=== PATIENT | male | born 1960 | race Caucasian/White ===

== ENCOUNTER 2018-10-08 22:28 | Emergency (ER) | payer MEDICARE, MEDICAID ==
[~2018-10-08] VITALS: Ht 172.7 cm; Wt 100.0 kg
[~2018-10-08 22:28] MED LIST: [UNRECOGNIZED DRUG - REMARK] PO
[2018-10-08 22:30] VITALS: BP 141/90
[2018-10-08] MEDS ORDERED: ketorolac tromethamine 15mg/ml inj. IM ONE (23:20)
[2018-10-08] MEDS ORDERED: CYCL-1 PO (23:21)
== END 2018-10-08 23:38 | disposition home or self-care (01) ==
LOC: ER 22:29
DX: S39.012A Strain of muscle, fascia and tendon of lower back, initial encounter (principal); M54.42 Lumbago with sciatica, left side; Z86.718 Personal history of other venous thrombosis and embolism; Z90.49 Acquired absence of other specified parts of digestive tract; Z98.890 Other specified postprocedural states; Z79.899 Other long term (current) drug therapy; X50.0XXA Overexertion from strenuous movement or load, initial encounter; Y93.89 Activity, other specified; Y92.89 Other specified places as the place of occurrence of the external cause; Y99.8 Other external cause status
CPT/HCPCS: 96372; 99283; J1885

== ENCOUNTER 2020-01-27 23:55 | Emergency (ER) | payer MEDICARE, MEDICAID ==
[~2020-01-27] VITALS: Ht 175.3 cm; Wt 95.0 kg
[~2020-01-27 23:55] MED LIST changes: +CYCL-1 PO
[2020-01-28] MEDS ORDERED: ondansetron/PF 4mg/2ml inj IV ONE (00:05)
[2020-01-28] MEDS ORDERED: ketorolac trometh. 30mg/ml inj. IV ONE (00:05)
[2020-01-28] MEDS ORDERED: normal saline 1000ML IV soln IVB ONE (00:05)
[2020-01-28] MEDS ORDERED: HYDROmorphone inj. 0.5 MG/0.5 ML DISP.SYRIN IV PRN (00:05)
[2020-01-28 00:26] LABS: CLARITY,URINE CLEAR (Clear); COLOR,URINE YELLOW (Yellow); GLUCOSE, URINE >=1000 mg/dl (Neg); KETONES,URINE NEGATIVE (Neg); LEUKOCYTE ESTERASE ,URINE NEGATIVE (Neg); NITRITES, URINE NEGATIVE (Neg); OCCULT BLOOD,URINE SMALL (Neg); PROTEIN,URINE NEGATIVE (Neg); UROBILINOGEN,URINE 0.2 E.U/dL (0.2-1.0)
[2020-01-28 00:28] LABS: UA COLLECTION TYPE CLN CATCH MIDSTREAM
[2020-01-28 00:36] LABS: BASOPHILS # (AUTO) 0.1 X10'3 (0-0.2); BASOPHILS % (AUTO) 0.8 % (0-1); EOSINOPHILS # (AUTO) 0.1 X10'3 (0-0.9); EOSINOPHILS % (AUTO) 0.7 % (0-6); HEMATOCRIT 48.2 % (42.0-52.0); HEMOGLOBIN 16.7 g/dl (14.0-17.9); LYMPHOCYTES # (AUTO) 2.2 X10'3 (1.1-4.8); LYMPHOCYTES % (AUTO) 21.5 % (21-51); MEAN CORPUSCULAR HEMOGLOBIN 32.8 PG (27.0-31.0); MEAN CORPUSCULAR HGB CONC 34.6 g/dL (33.0-36.5); MEAN CORPUSCULAR VOLUME 94.7 FL (78-98); MEAN PLATELET VOLUME 7.6 FL (7.4-10.4); MONOCYTES # (AUTO) 0.9 X10'3 (0-0.9); MONOCYTES % (AUTO) 8.6 % (2-12); NEUTROPHILS % (AUTO) 68.4 % (42-75); PLATELET COUNT 235 X10'3 (140-440); RED BLOOD COUNT 5.08 X10'6 (4.70-6.10); RED CELL DISTRIBUTION WIDTH 13.2 % (11.5-14.5); WHITE BLOOD COUNT 10.2 X10'3 (4.5-11.0)
[2020-01-28 00:38] LABS: BACTERIA,URINE NONE SEEN /HPF (Neg); MUCUS STRANDS NONE SEEN /LPF (Neg); RBC,URINE 0-2 /HPF (0-2); SQUAMOUS EPITHELIAL CELL,UR FEW /LPF (FEW); WBC,URINE NONE SEEN /HPF (0-4)
[2020-01-28] MEDS ORDERED: magnesium citrate 296ml oral solution PO ONE (00:45)
[2020-01-28 00:47] LABS: ALANINE AMINOTRANSFERASE 24 U/L (12-78); ALBUMIN 3.8 G/DL (3.4-5.0); ALKALINE PHOSPHATASE 142 IU/L (46-116); ANION GAP 10 (8-16); ASPARTATE AMINO TRANSFERASE 15 U/L (10-37); BILIRUBIN,TOTAL 0.5 MG/DL (0.1-1.0); BLOOD UREA NITROGEN 15 MG/DL (7-18); BUN/CREATININE RATIO 16.1 (5.4-32.0); CHLORIDE 98 MMOL/L (99-107); CREATININE 0.93 MG/DL (0.60-1.10); GLUCOSE 351 MG/DL (70-104); LIPASE 148 U/L (73-393); POTASSIUM 4.2 MMOL/L (3.5-5.1); SODIUM 133 MMOL/L (135-145); TOTAL CARBON DIOXIDE 25.5 MMOL/L (24-32); TOTAL PROTEIN 7.7 G/DL (6.4-8.2); eGFR 83 ML/MIN
[2020-01-28] MEDS ORDERED: dexamethasone sod phosphate 10mg/ml inj IV STA (00:47)
[2020-01-28] MEDS ORDERED: METH-360 PO (00:48)
[2020-01-28] MEDS ORDERED: PRED20TA PO (00:48)
[2020-01-28] MEDS ORDERED: diazepam 5mg tablet PO ONE (00:50)
[2020-01-28 01:03] VITALS: BP 135/87
== END 2020-01-28 01:06 | disposition home or self-care (01) ==
LOC: ER 23:55
DX: M54.42 Lumbago with sciatica, left side (principal); K59.00 Constipation, unspecified; R73.9 Hyperglycemia, unspecified; G89.29 Other chronic pain; Z86.718 Personal history of other venous thrombosis and embolism; Z90.49 Acquired absence of other specified parts of digestive tract; Z98.890 Other specified postprocedural states; Z79.899 Other long term (current) drug therapy
CPT/HCPCS: 36415; 74176; 80053; 81001; 82948; 83690; 85025; 96374; 96375; 99284; J1100; J1170; J1885; J2405; J7030

== ENCOUNTER 2020-05-19 09:12 | Emergency (ER) | payer MEDICARE, MEDICAID ==
[~2020-05-19] VITALS: Ht 175.3 cm; Wt 80.0 kg
[~2020-05-19 09:12] MED LIST changes: +METH-360 PO
[2020-05-19 09:15] VITALS: BP 132/83
[2020-05-19] MEDS ORDERED: GABA-530 PO ×2 (10:12→10:17)
== END 2020-05-19 10:27 | disposition home or self-care (01) ==
LOC: ER 09:13
DX: M76.32 Iliotibial band syndrome, left leg (principal); G89.29 Other chronic pain; Z86.718 Personal history of other venous thrombosis and embolism; Z98.890 Other specified postprocedural states; Z90.49 Acquired absence of other specified parts of digestive tract; W17.89XA Other fall from one level to another, initial encounter; Y93.89 Activity, other specified; Y92.89 Other specified places as the place of occurrence of the external cause; Y99.9 Unspecified external cause status
CPT/HCPCS: 73502; 99283

== ENCOUNTER 2020-11-13 10:44 | Emergency (ER) | payer MEDICARE, MEDICAID ==
[~2020-11-13] VITALS: Ht 172.7 cm; Wt 79.0 kg
[~2020-11-13 10:44] MED LIST changes: +GABA-530 PO
[2020-11-13 10:46] VITALS: BP 143/83
--- NOTE | 2020-11-13 14:06 | NUR ---
Attempted to call patient back for the third time. Patient not in lobby. Called patient at listed number and left a voicemail. Dr. Mac aware.
== END 2020-11-13 14:07 | disposition left against medical advice (07) ==
LOC: ER 10:44
DX: M25.531 Pain in right wrist (principal); Z53.21 Procedure and treatment not carried out due to patient leaving prior to being seen by health care provider
CPT/HCPCS: 73110

== ENCOUNTER 2022-07-11 13:38 | Emergency (ER) | payer MEDICARE, MEDICAID ==
[~2022-07-11] VITALS: Ht 172.7 cm; Wt 37.2 kg
[2022-07-11] MEDS ORDERED: morphine 4 MG/ML inj SYRINge IV ONE (13:55)
[2022-07-11 14:13] LABS: BASOPHILS # (AUTO) 0.1 X10'3 (0-0.2); BASOPHILS % (AUTO) 0.6 % (0-1); EOSINOPHILS # (AUTO) 0.1 X10'3 (0-0.9); EOSINOPHILS % (AUTO) 0.6 % (0-6); HEMATOCRIT 44.8 % (42.0-52.0); HEMOGLOBIN 15.3 g/dl (14.0-17.9); LYMPHOCYTES # (AUTO) 2.2 X10'3 (1.1-4.8); LYMPHOCYTES % (AUTO) 20.2 % (21-51); MEAN CORPUSCULAR HEMOGLOBIN 32.9 PG (27.0-31.0); MEAN CORPUSCULAR HGB CONC 34.2 g/dL (33.0-36.5); MEAN CORPUSCULAR VOLUME 96.4 FL (78-98); MEAN PLATELET VOLUME 7.3 FL (7.4-10.4); MONOCYTES # (AUTO) 0.7 X10'3 (0-0.9); MONOCYTES % (AUTO) 6.8 % (2-12); NEUTROPHILS # (AUTO) 7.8 X10'3 (1.8-7.7); NEUTROPHILS % (AUTO) 71.8 % (42-75); PLATELET COUNT 243 X10'3 (140-440); RED BLOOD COUNT 4.65 X10'6 (4.70-6.10); RED CELL DISTRIBUTION WIDTH 13.6 % (11.5-14.5); WHITE BLOOD COUNT 10.9 X10'3 (4.5-11.0)
[2022-07-11 14:24] LABS: APTT 26 SECONDS (22-32)
[2022-07-11 14:29] LABS: ALANINE AMINOTRANSFERASE 35 U/L (12-78); ALBUMIN/GLOBULIN RATIO 1.1 (1.1-1.5); ALKALINE PHOSPHATASE 119 IU/L (46-116); ANION GAP 12 (8-16); ASPARTATE AMINO TRANSFERASE 20 U/L (10-37); BILIRUBIN,TOTAL 0.5 MG/DL (0.1-1.0); BLOOD UREA NITROGEN 14 MG/DL (7-18); BUN/CREATININE RATIO 15.1 (5.4-32.0); CALCIUM 9.3 MG/DL (8.5-10.1); CHLORIDE 102 MMOL/L (99-107); CREATININE 0.93 MG/DL (0.60-1.10); GLUCOSE 321 MG/DL (70-104); POTASSIUM 4.1 MMOL/L (3.5-5.1); SODIUM 138 MMOL/L (135-145); TOTAL PROTEIN 7.5 G/DL (6.4-8.2); eGFR 82 ML/MIN
[2022-07-11 14:36] LABS: ETHANOL < 0.010 GM/DL (0.0-0.010)
[2022-07-11] MEDS ORDERED: HYDROcodone/acetaminophen 10/325mg tab PO ONE (15:00)
[2022-07-11] MEDS ORDERED: morphine 10mg/ml inj. IV ONE (15:00)
[2022-07-11 15:31] LABS: CLARITY,URINE CLEAR (Clear); COLOR,URINE YELLOW (Yellow); GLUCOSE, URINE >=1000 mg/dl (Neg); KETONES,URINE NEGATIVE (Neg); LEUKOCYTE ESTERASE ,URINE NEGATIVE (Neg); NITRITES, URINE NEGATIVE (Neg); OCCULT BLOOD,URINE NEGATIVE (Neg); PROTEIN,URINE NEGATIVE (Neg); UROBILINOGEN,URINE 0.2 E.U/dL (0.2-1.0)
[2022-07-11 15:36] LABS: UA COLLECTION TYPE CLN CATCH MIDSTREAM
--- NOTE | 2022-07-11 15:36 | NUR ---
Teri mancuso in [facility] - 07/11/22 at 1658 by GLORIA yasmin Metzger,
[2022-07-11 15:38] LABS: BACTERIA,URINE NONE SEEN /HPF (Neg); RBC,URINE 0-2 /HPF (0-2); SQUAMOUS EPITHELIAL CELL,UR NONE SEEN /LPF (FEW); WBC,URINE 0-4 /HPF (0-4)
--- NOTE | 2022-07-11 15:38 | NUR ---
pt educated on incentive spirometer. return demonstration completed.
[2022-07-11 15:40] LABS: FINE GRANULAR CAST 0-3 /LPF (NEGATIVE); MUCUS STRANDS MANY /LPF (Neg)
[2022-07-11] MEDS ORDERED: HYDR-3972 PO (15:50)
[2022-07-11 15:52] LABS: URINE AMPHETAMINE SCREEN NEGATIVE (Neg); URINE BARBITUATE SCREEN NEGATIVE (Neg); URINE BENZODIAZEPINES SCREEN NEGATIVE (Neg); URINE CANNABINOID SCREEN NEGATIVE (Neg); URINE COCAINE SCREEN NEGATIVE (Neg); URINE METHADONE SCREEN NEGATIVE (Neg); URINE OPIATE SCREEN POSITIVE (Neg); URINE PHENCYCLIDINE SCREEN NEGATIVE (Neg)
[2022-07-11 16:30] VITALS: BP 132/80
== END 2022-07-11 16:40 | disposition home or self-care (01) ==
LOC: ER 13:38
DX: S20.211A Contusion of right front wall of thorax, initial encounter (principal); S40.211A Abrasion of right shoulder, initial encounter; R07.81 Pleurodynia; R91.1 Solitary pulmonary nodule; G89.29 Other chronic pain; Z86.718 Personal history of other venous thrombosis and embolism; Z90.49 Acquired absence of other specified parts of digestive tract; Z98.890 Other specified postprocedural states; Z79.899 Other long term (current) drug therapy; V29.208A Unspecified rider of other motorcycle injured in collision with unspecified motor vehicles in nontraffic accident, initial encounter; Y93.89 Activity, other specified; Y92.89 Other specified places as the place of occurrence of the external cause; Y99.8 Other external cause status
CPT/HCPCS: 36415; 71250; 80053; 80305; 80320; 81001; 84484; 85025; 85610; 85730; 93005; 96374; 96375; 99285; J2270; J2274

== ENCOUNTER 2023-08-22 02:07 | Emergency (ER) | payer MEDICARE, MEDICAID ==
[~2023-08-22] VITALS: Ht 175.3 cm; Wt 70.3 kg
[2023-08-22 02:10] VITALS: TEMP 97.2
[2023-08-22] MEDS ORDERED: LIDOCAINE 1%/EPI 1:100,000 inj. 10 ML multi-dose vial IJ ONE (04:30)
[2023-08-22] MEDS ORDERED: TETanus/Pertussis (Acell)/Diphther VAC/PF (Tdap-Adult) 0.5ml syringe IMVAC ONE (04:30)
[2023-08-22 05:21] VITALS: BP 111/76; PULSE 78; RESP 18; O2SAT 97
== END 2023-08-22 05:57 | disposition left against medical advice (07) ==
LOC: ER 02:07
DX: S01.01XA Laceration without foreign body of scalp, initial encounter (principal); W18.39XA Other fall on same level, initial encounter; Y93.89 Activity, other specified; Y92.89 Other specified places as the place of occurrence of the external cause; Y99.8 Other external cause status
CPT/HCPCS: 12002; 70450; 71045; 90471; 90715; 99285

== ENCOUNTER 2024-10-12 12:35 | Emergency (ER) | payer MEDICARE, MEDICAID ==
[~2024-10-12] VITALS: Ht 175.3 cm; Wt 66.0 kg
[2024-10-12 12:47] VITALS: BP 101/67; PULSE 85; TEMP 97.5; O2SAT 99
[2024-10-12] MEDS: TETanus/Pertussis (Acell)/Diphther VAC/PF (Tdap-Adult) 0.5ml syringe IMVAC ONE (14:13)
[2024-10-12] MEDS: LIDOcaine 1% W/epiNEPHrine 1:100,000 20ml vial IJ ONE (14:14)
[2024-10-12] MEDS ORDERED: SULF1TAB49 PO (14:18)
[2024-10-12 14:42] VITALS: RESP 16
[2024-10-12] MEDS: HYDROcodone/acetaminophen 5mg/325mg tablet PO ONE (14:42)
== END 2024-10-12 14:45 | disposition home or self-care (01) ==
LOC: ER 12:36
DX: L02.31 Cutaneous abscess of buttock (principal); E11.9 Type 2 diabetes mellitus without complications; G89.29 Other chronic pain; M54.9 Dorsalgia, unspecified; Z86.718 Personal history of other venous thrombosis and embolism; Z90.49 Acquired absence of other specified parts of digestive tract; Z79.899 Other long term (current) drug therapy
CPT/HCPCS: 10060; 99283; A6253; A6258; A6402; J3490; Z7610; A6449

== ENCOUNTER 2025-02-24 21:24 | Emergency (ER) | payer MEDICARE, MEDICAID ==
[~2025-02-24] VITALS: Ht 172.7 cm; Wt 90.0 kg
[2025-02-24 21:36] VITALS: BP 110/65; PULSE 106; RESP 16; TEMP 98.2; O2SAT 95
--- NOTE | 2025-02-24 21:47 | ELECTROCARDIOGRAPH REPORT ---
[facility] Test Date: 2025-02-24 Test Time: 21:44:18 Pat Name: HELEN ROMERO Department: [facility]-ER Patient ID: [facility]-[id number] Room: Gender: M Information Technology Auditor: TEREZA : 1960 Requested By: DEVORAH GAITAN Order Number: [id number] Reading MD: Measurements Intervals [place] Rate: 111 P: 78 NE: 167 QRS: 86 QRSD: 98 T: -25 QT: 350 QTc: 476 Interpretive Statements Sinus tachycardia Biatrial enlargement Borderline right axis deviation Anteroseptal infarct, old Please click the below link to view image of tracing.
[2025-02-24 22:02] LABS: BASOPHILS # (AUTO) 0.1 X10'3 (0-0.2); BASOPHILS % (AUTO) 0.9 % (0-1); EOSINOPHILS # (AUTO) 0.1 X10'3 (0-0.9); EOSINOPHILS % (AUTO) 0.9 % (0-6); HEMATOCRIT 44.2 % (42.0-52.0); HEMOGLOBIN 15.1 g/dl (14.0-17.9); LYMPHOCYTES # (AUTO) 2.1 X10'3 (1.1-4.8); LYMPHOCYTES % (AUTO) 24.6 % (21-51); MEAN CORPUSCULAR HEMOGLOBIN 31.5 PG (27.0-31.0); MEAN CORPUSCULAR HGB CONC 34.1 g/dL (33.0-36.5); MEAN CORPUSCULAR VOLUME 92.2 FL (78-98); MEAN PLATELET VOLUME 7.7 FL (7.4-10.4); MONOCYTES # (AUTO) 0.7 X10'3 (0-0.9); MONOCYTES % (AUTO) 7.8 % (2-12); NEUTROPHILS # (AUTO) 5.7 X10'3 (1.8-7.7); NEUTROPHILS % (AUTO) 65.8 % (42-75); PLATELET COUNT 284 X10'3 (140-440); RED CELL DISTRIBUTION WIDTH 13.4 % (11.5-14.5); WHITE BLOOD COUNT 8.7 X10'3 (4.5-11.0)
[2025-02-24 22:14] LABS: ALANINE AMINOTRANSFERASE 19 U/L (12-78); ALBUMIN 4.1 G/DL (3.4-5.0); ALBUMIN/GLOBULIN RATIO 1.1 (1.1-1.5); ALKALINE PHOSPHATASE 159 IU/L (46-116); ANION GAP 10 (8-16); ASPARTATE AMINO TRANSFERASE 15 U/L (10-37); BILIRUBIN,TOTAL 1.1 MG/DL (0.1-1.0); BLOOD UREA NITROGEN 16 MG/DL (7-18); BUN/CREATININE RATIO 14.8 (10.0-20.0); CALCIUM 9.4 MG/DL (8.5-10.1); CHLORIDE 102 MMOL/L (99-107); CREATININE 1.08 MG/DL (0.60-1.10); GLUCOSE 332 MG/DL (70-104); POTASSIUM 3.9 MMOL/L (3.5-5.1); SODIUM 138 MMOL/L (135-145); TOTAL CARBON DIOXIDE 26.3 MMOL/L (24-32); TOTAL PROTEIN 7.7 G/DL (6.4-8.2); eCRCL 65 ML/MIN; eGFR 68 ML/MIN
--- NOTE | 2025-02-24 22:18 | RADIOLOGY REPORT ---
CHEST RADIOGRAPH Indication: CP Technique: Single frontal view of the chest was obtained COMPARISON: Chest AP 08/22/2023 FINDINGS: Lines and Tubes: None Lungs: Lungs appear hyperinflated with relative lucency in the upper lobes suggestive of emphysematou s changes. No pulmonary infiltrates or edema. Pleura: No effusion. No pneumothorax. Cardiomediastinal contours: Unremarkable IMPRESSION: No acute abnormality noted. Pulmonary hyperinflation suggestive of emphysematous changes. No significant change compared to the prior chest x-ray from August 2023.
[2025-02-24 22:21] LABS: PRO BRAIN NATRIURETIC PEPTIDE 49 PG/ML (0-125)
== END 2025-02-24 23:31 | disposition left against medical advice (07) ==
LOC: ER 21:25
DX: R06.02 Shortness of breath (principal); Z53.21 Procedure and treatment not carried out due to patient leaving prior to being seen by health care provider
CPT/HCPCS: 36415; 71045; 80053; 83880; 84484; 85025; 93005